=== PATIENT | female | born 1975 | race Caucasian/White ===

== ENCOUNTER 2020-06-16 14:18 | Emergency (ER) | payer BC ==
[2020-06-16] MEDS ORDERED: LIDOCAINE 1% MPF 5 ML VIAL ONE (17:43)
--- NOTE | 2020-06-16 18:37 | ER ---
Nurse's Notes [facility] Name: Irene Lerma Age: 44 yrs Sex: Female : 1975 Arrival Date: 06/16/2020 Time: 14:25 Bed 24 Private MD: Diagnosis: Laceration without foreign body of left index finger without damage to nail Presentation: 06/16 15:13 Chief complaint: Patient states: Lac on 2nd digit of L hand with a inseam trimmer <1hr ca1 ago. Bleeding controlled. Coronavirus screen: Client denies travel out of the [place] in the last 14 days. At this time, the client does not indicate any symptoms associated with coronavirus-19. Ebola Screen: Patient negative for fever greater than or equal to 101.5 degrees Fahrenheit, and additional compatible Ebola Virus Disease symptoms Patient denies exposure to infectious person. Patient denies travel to an Ebola-affected area in the 21 days before illness onset. No symptoms or risks identified at this time. Complicating Factors: There are no complicating factors for this patient. Initial Sepsis Screen: Does the patient meet any 2 criteria? No. Patient's initial sepsis screen is negative. Does the patient have a suspected source of infection? No. Patient's initial sepsis screen is negative. Risk Assessment: Do you want to hurt yourself or someone else? Patient reports no desire to harm self or others. Onset of symptoms was June 16, 2020. 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 - Social history:: Smoking status: Patient reports the use of cigarette tobacco products, smokes one pack cigarettes per day. Screenin:00 Abuse screen: Denies threats or abuse. Nutritional screening: No deficits noted. aa5 Tuberculosis screening: No symptoms or risk factors identified. Fall Risk None identified. Assessment: 16:53 General: Appears comfortable, Behavior is calm, cooperative. Pain: Complains of pain in aa5 left index finger. Neuro: Level of Consciousness is awake, alert, obeys commands, Oriented to person, place, time, situation. Cardiovascular: Patient's skin is warm and dry. Respiratory: Airway is patent Respiratory effort is even, unlabored, Respiratory pattern is regular, symmetrical. GI: No signs and/or symptoms were reported involving the gastrointestinal system. : No signs and/or symptoms were reported regarding the genitourinary system. EENT: No signs and/or symptoms were reported regarding the EENT system. Derm: Skin is pink, warm \T\ dry. Musculoskeletal: Range of motion: intact in all extremities. Injury Description: Laceration sustained to left index is v-shaped. Dressing noted to laceration at this time. 17:50 Reassessment: Patient is alert, oriented x 3, equal unlabored respirations, skin aa5 warm/dry/pink. Awaiting laceration repair . 18:50 Reassessment: Patient is alert, oriented x 3, equal unlabored respirations, skin aa5 warm/dry/pink. Vital Signs: 15:13 BP 112 / 83; Pulse 75; Resp 18 S; Temp 97.8(TE); Pulse Ox 98% on R/A; Weight 86.18 kg ca1 (R); Height 5 ft. 10 in. (177.80 cm) (R); Pain 6/10; 15:13 Body Mass Index 27.26 (86.18 kg, 177.80 cm) ca1 ED Course: 14:25 Patient arrived in ED. as 15:16 Triage completed. ca1 15:17 Arm band placed on right wrist. ca1 16:53 Rosalinda Desai, RN is Primary Nurse. aa5 16:53 Patient has correct armband on for positive identification. Bed in low position. Call aa5 light in reach. Side rails up X 1. 17:01 Nicolas Ornelas NP is PHCP. pm1 17:01 Octavio Lee MD is Attending Physician. pm1 18:25 Assist provider with laceration repair on left index finger using 5 sutures placed . aa5 Set up tray. Performed by Nicolas Ornelas NP Patient tolerated well. 18:50 Wound care: located on left index finger. Dressed with non-adherent dressing and coband aa5 Patient tolerated well. 18:50 Patient did not have IV access during this emergency room visit. aa5 Administered Medications: 18:25 Drug: Lidocaine (1 %) 5 ml {Note: administered by STAFF CONSULTANT for laceration repair .} Volume: 5 aa5 ml; Route: Infiltration; 18:45 Drug: Tylenol #3 (300 mg-30 mg) 1 tablet Route: PO; ca1 18:50 Follow up: Response: Medication administered at discharge. ca1 Outcome: 18:36 Discharge ordered by MD. pm1 18:50 Discharged to home ambulatory, with significant other. aa5 18:50 Condition: good 18:50 Discharge instructions given to patient, Instructed on discharge instructions, follow up and referral plans. medication usage, Demonstrated understanding of instructions, follow-up care, medications, Prescriptions given X 2. 18:52 Patient left the ED. aa5 Signatures: Morenita Alan Audri, RN RN aa5 Nicolas Ornelas NP STAFF CONSULTANT pm1 Kim Mejia RN RN ca1 Corrections: (The following items were deleted from the chart) 18:42 18:25 Lidocaine (1 %) 5 ml 5 ml Infiltration 5 ml aa5 aa5 19:06 18:50 Discharged to home ambulatory, aa5 aa5 19:06 19:06 Patient left the ED. aa5 aa5
--- NOTE | 2020-06-16 18:37 | EDPHYS ---
Physician Documentation [facility] Name: Irene Lerma Age: 44 yrs Sex: Female : 1975 Arrival Date: 06/16/2020 Time: 14:25 Bed 24 Private MD: ED Physician Octavio Lee HPI: 06/16 17:24 This 44 yrs old Female presents to ER via Ambulatory with complaints of pm1 Laceration. 17:24 The patient or guardian reports a laceration, irregular. The complaints affect the pm1 palmar aspect of proximal phalanx of left index finger. Context: The problem was sustained at home, resulted from cutting with her new hedge cutter and accidentally cut her left index finger . Onset: The symptoms/episode began/occurred 3 hour(s) ago. Modifying factors: The symptoms are alleviated by pressure to area, the symptoms are aggravated by movement. Associated signs and symptoms: Pertinent negatives: cyanosis distally, decreased sensation distally, numbness distally, tingling distally. Severity of symptoms: in the emergency department the symptoms have improved. The patient has not experienced similar symptoms in the past. The patient has not recently seen a physician. 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 - Social history:: Smoking status: Patient reports the use of cigarette tobacco products, smokes one pack cigarettes per day. ROS: 19:30 Constitutional: Negative for fever, chills, and weight loss. pm1 19:30 Cardiovascular: Negative for chest pain, palpitations, and edema, Respiratory: Negative for shortness of breath, cough, wheezing, and pleuritic chest pain, Neuro: Negative for headache, weakness, numbness, tingling, and seizure. 19:30 MS/extremity: Positive for laceration, of the palmar aspect of proximal phalanx of left index finger, Negative for decreased range of motion, deformity. 19:30 Skin: Positive for laceration(s), of the palmar aspect of proximal phalanx of left index finger. Exam: 19:30 Constitutional: This is a well developed, well nourished patient who is awake, alert, pm1 and in no acute distress. Head/Face: Normocephalic, atraumatic. 19:30 Skin: Appearance: normal except for affected area, injury, laceration(s), the wound is approximately 2 cm(s), of the palmar aspect of proximal phalanx of left index finger, that can be described as clean, no foreign body, irregular, without bleeding. 19:30 Neuro: Exam negative for acute changes, Orientation: is normal, Mentation: is normal, Motor: is normal, moves all fours, Sensation: is normal, no obvious gross deficits, Gait: is steady, at a normal pace, without difficulty. Vital Signs: 15:13 BP 112 / 83; Pulse 75; Resp 18 S; Temp 97.8(TE); Pulse Ox 98% on R/A; Weight 86.18 kg ca1 (R); Height 5 ft. 10 in. (177.80 cm) (R); Pain 6/10; 15:13 Body Mass Index 27.26 (86.18 kg, 177.80 cm) ca1 Laceration: 18:33 Wound Repair of 2cm ( 0.8in ) subcutaneous laceration to palmar aspect of proximal pm1 phalanx of left index finger. Irregularly shaped.. Distal neuro/vascular/tendon intact. Anesthesia: Local anesthetic administered with 2 mls of 1% lidocaine. Wound prep: Extensive cleansing with betadine with hibiclenz by me, Wound irrigation with saline by me, Wound explored extensively, Copious irrigation. Skin closed with 5 4-0 Prolene using simple sutures and sterile technique. Dressed with Neosporin, Kerlix. Patient tolerated well. MDM: 17:01 Patient medically screened. pm1 18:33 Data reviewed: vital signs. Data interpreted: Pulse oximetry: on room air is 98 %. pm1 Interpretation: normal. Counseling: I had a detailed discussion with the patient and/or guardian regarding: the historical points, exam findings, and any diagnostic results supporting the discharge/admit diagnosis, the need for outpatient follow up, suture removal in 10-14 days, to return to the emergency department if symptoms worsen or persist or if there are any questions or concerns that arise at home. 18:33 ED course: Patient was upset that she has been in the ER for awhile. She said she has pm1 been waiting since 2:00. I understand that the patient was frustrated but I started seeing her at 1724. I soaked her wound in Betadine, locally numbed her wound, cleaned it with Hibiclens, and repaired it. She and her significant other were happy with the result. 06/16 17:24 Order name: Prolene, Sutures; Complete Time: 17:49 pm1 06/16 17:24 Order name: Dressing - Wound; Complete Time: 18:55 pm1 06/16 17:24 Order name: Gloves, Sterile; Complete Time: 17:49 pm1 06/16 17:24 Order name: Setup Suture Tray; Complete Time: 17:49 pm1 Administered Medications: 18:25 Drug: Lidocaine (1 %) 5 ml {Note: administered by LODGING FACILITIES MANAGER for laceration repair .} Volume: 5 aa5 ml; Route: Infiltration; 18:45 Drug: Tylenol #3 (300 mg-30 mg) 1 tablet Route: PO; ca1 18:50 Follow up: Response: Medication administered at discharge. ca1 Disposition: 06/16/20 18:36 Discharged to Home. Impression: Laceration without foreign body of left index finger without damage to nail. - Condition is Stable. - Discharge Instructions: Laceration Care, Adult, [id number]. - Prescriptions for Keflex 500 mg Oral Capsule - take 1 capsule by ORAL route every 8 hours for 10 days; 30 capsule. Tylenol- Codeine #3 300-30 mg Oral Tablet - take 1 tablet by ORAL route every 6 hours As needed; 12 tablet. - Medication Reconciliation Form, Thank You Letter, Antibiotic Education, Prescription Opioid Use form. - Follow up: Emergency Department; When: As needed; Reason: Worsening of condition. Follow up: Private Physician; When: 2 - 3 days; Reason: Recheck today's complaints, Continuance of care, Re-evaluation by your physician. - Problem is new. - Symptoms have improved. Addendum: 06/18/2020 07:05 Co-signature as Attending Physician, Octavio Lee MD I agree with the assessment and k dr plan of care. Signatures: Octavio Lee MD MD [facility] Rosalinda Desai RN RN aa5 Nicolas Ornelas NP LODGING FACILITIES MANAGER pm1 Kim Mejia RN RN ca1 Corrections: (The following items were deleted from the chart) 06/16 19:06 18:36 06/16/2020 18:36 Discharged to Home. Impression: Laceration without foreign body aa5 of left index finger without damage to nail. Condition is Stable. Forms are Medication Reconciliation Form, Thank You Letter, Antibiotic Education, Prescription Opioid Use. Follow up: Emergency Department; When: As needed; Reason: Worsening of condition. Follow up: Private Physician; When: 2 - 3 days; Reason: Recheck today's complaints, Continuance of care, Re-evaluation by your physician. Problem is new. Symptoms have improved. pm1
[2020-06-16] MEDS ORDERED: CODEINE 30MG/APAP 300MG TAB ONE (19:00)
[2020-06-16 19:18] VITALS: BP 112/83; TEMP 97.8; O2SAT 98
--- OUTSIDE RECORDS SUMMARY | 2020-06-20 23:21 | XMS REPORT | Continuity of Care Document ---
:1975 Author Organization [facility] t Address [address] [place] [address] Care Team Providers Name Role Phone Anyi KOCH, Topher Cummings Attending Clinician Payers Payer Name Policy Type Policy Number Effective Date Expiration Date S ource Problems This patient has no known problems. Allergies, Adverse Reactions, Alerts Allergy Allergy Status Severity Reaction(s) Onset Inactive Treating Comm ents Source Name Type Date Date Clinician No Known DA Active U 2006-0 [facility] [place] No Known DA Active U 2006-0 [facility] [place] [facility] No Known DA Active U 2006-0 [facility] No Known DA Active U 2006-0 [facility] [place] No Known DA Active U 2006-0 [facility] [place] [facility] Medications This patient has no known medications. Procedures This patient has no known procedures. Encounters Start End Encounter Admission Attending Care Care Encounter Source Date/Time Date/Time Type Type Clinicians Facility Department ID 2019-04-13 2019-04-13 Office DOMINIQUE De Santiago [id number] 14:22:13 14:45:46 [place] [id number] [id number] [id number] [facility] [address] [address] Results This patient has no known results.
== END 2020-06-16 19:06 | disposition home or self-care (01) ==
LOC: ER 14:18
PROC: 0JQK0ZZ Repair Left Hand Subcutaneous Tissue and Fascia, Open Approach (ICD-10-PCS; principal; 2020-06-16)
DX: S61.211A Laceration without foreign body of left index finger without damage to nail, initial encounter (principal); F17.210 Nicotine dependence, cigarettes, uncomplicated; W27.8XXA Contact with other nonpowered hand tool, initial encounter; Y93.89 Activity, other specified; Y92.9 Unspecified place or not applicable
CPT/HCPCS: 99284